=== PATIENT | male | born 1950 | race Caucasian/White ===

== ENCOUNTER 2018-11-01 12:13 | Inpatient (IN) ==
[2018-11-01] MEDS ORDERED: SODIUM CHLORIDE 0.9% 1000ML 2,000 ML IV ONE (12:39)
[2018-11-01] MEDS ORDERED: PIPERACILL/TAZOBAC CONSULT ACTIVE PRN ×2 (12:39→16:49)
[2018-11-01] MEDS ORDERED: PIPERACILLIN/TAZOBACTAM 4.5 GM/120 ML BAG IV ONE (12:39)
[2018-11-01] MEDS ORDERED: ACETAMINOPHEN 1,000 MG/100 ML VIAL IV ONE (12:39)
[2018-11-01 13:11] LABS: Hematocrit (blood only) 43.1 % (42-52); Hemoglobin 14.7 g/dL (14.0-18.0); Mean Corpuscular Hgb Conc 34.1 g/dL (32-36); Mean Corpuscular Volume 93.3 fL (80-100); Mean Platelet Volume 10.3 fL (7.4-10.4); Platelet Count 149 K/uL (130-400); RDW Coefficient of Variation 12.9 % (11.5-14.5); RDW Standard Deviation 43.8 fL (36.4-46.3); Red Blood Count 4.62 M/uL (4.7-6.1); White Blood Count 12.31 K/uL (4.8-10.8)
[2018-11-01 13:12] LABS: Appearance Urine Turbid (Clear); Bacteria Urine Automated 4+ (Negative); Bilirubin Urine Negative (Negative); Cast Urine Automated 0 /lpf (0-5); Color Urine Dark Yellow; Glucose Urine UA Negative (Negative); Ketones Urine Trace (Negative); Leukocyte Esterase Urine 3+ (Negative); Nitrite Urine Negative (Negative); Protein Urine 2+ (Negative); Urobilinogen Urine Negative (Negative); WBC Urine Automated >30 /hpf (0-5); pH Urine 5.5 (4.5-7.5)
[2018-11-01 13:23] LABS: INR 1.1 (0.9-1.1); Partial Thromboplastin Time 26.3 Seconds (21.0-31.0); Prothrombin Time 10.6 Seconds (9.0-12.0)
[2018-11-01 13:25] LABS: Albumin Level 3.9 gm/dl (3.4-5.0); Aspartate Aminotransferase 40 U/L (15-37); Bilirubin Direct 0.4 mg/dl (0-0.2); Blood Urea Nitrogen 16 mg/dl (7-18); Calcium 8.7 mg/dl (8.5-10.1); Carbon Dioxide 21 mmol/L (21-32); Chloride 104 mmol/L (98-107); Est GFR (Non-African American) 66.4; Glucose 125 mg/dl (70-99); Magnesium 1.8 mg/dl (1.8-2.4); Potassium 3.6 mmol/L (3.5-5.1); Sodium 136 mmol/L (136-145)
[2018-11-01 13:30] LABS: Alanine Aminotransferase 40 U/L (12-78); Albumin Globulin Ratio 0.9 (0.9-2); Alkaline Phosphatase 85 U/L (45-117); Bilirubin,Total 1.2 mg/dl (0.2-1); Globulin 4.2 gm/dl (2.5-4.0); Phosphorus 2.6 mg/dl (2.5-4.9); Total Protein 8.1 gm/dl (6.4-8.2); Troponin I < 0.015 ng/ml (0-0.045)
[2018-11-01 13:38] LABS: Basophils # (auto) 0.01 K/uL (0-0.2); Basophils % (auto) 0.1 %; Immature Granulocytes # (auto) 0.04 K/uL (0.00-0.02); Immature Granulocytes % (auto) 0.3 %; Lymphocytes # (auto) 0.85 K/uL (1.2-3.4); Lymphocytes % (auto) 6.9 %; Monocytes # (auto) 0.26 K/uL (0.11-0.59); Monocytes % (auto) 2.1 %; Neutrophils # (auto) 11.15 K/uL (1.4-6.5); Neutrophils % (auto) 90.6 %
[2018-11-01 13:53] LABS: Base Excess VBG -0.8 mEq/L; Oxygen Saturation VBG 81.2 %; pH VBG 7.45 (7.36-7.41)
[2018-11-01] MEDS ORDERED: IOVERSOL 100ml IV PRN (14:00)
--- NOTE | 2018-11-01 14:08 | Emergency Department Note ---
Entered by Crow Shane acting as a scribe for Brendon Eden MD History of Present Illness General Chief complaint: Urinary Symptoms Stated complaint: SENT BY DOCTOR KT Time Seen by Provider: 11/01/18 12:28 Source: patient Limitations: no limitations History of Present Illness Onset (ago): day(s) 1 Location: abdomen Pain Consistency: + constant Maximum Pain Intensity: 8 Quality: + constant Associated symptoms: + denies other symptoms (congestion), + fever/chills and + other (shakes); no cough The patient is a 68 year old male who presents to the Emergency Room with complaints of urinary symptoms starting yesterday at 0200. The patient states he has not been able to urinate and visited a doctor today. He states he was told it may be a blockage that might be the problem. He notes he has been experiencing chills, shakes, and fever.The patient notes he has been trying to urinate. He states he thinks there is a blockage at the base of his genitals. The patient states he felt fine before yesterday. The patient denies cough and congestion. Home Medications Home Medications Medication Instructions Recorded Confirmed Type aspirin 81 mg PO QDD 11/01/18 11/01/18 History calcium carbonate-vitamin D3 1 tab PO QDD 11/01/18 11/01/18 History [Caltrate 600 + D] garlic 0 mg PO QDD 11/01/18 11/01/18 History multivit with [id number] [One 1 tab PO QDD 11/01/18 11/01/18 History Daily For Men] simvastatin 40 mg PO HS 11/01/18 11/01/18 History Allergies Allergy/AdvReac Type Severity Reaction Status Date / Time iodine Allergy Mild UNKNOWN Unverified 11/01/18 14:10 Past Med/Surg History Medical History Smoking (Chronic) Diverticulosis (Chronic) Abdominal aortic aneurysm (Chronic) [place] [facility] [place] (Ch[place]) Surgical History History of repair of aneurysm of abdominal aorta using endovascular stent graft (Chronic) 09/04/17 Dr. [place] [facility] [place] (Chronic) Family History Mother Coronary artery disease Father Coronary artery disease Brother Cancer Brother Kidney malignancy Sister Lung cancer Social History marital status: Current Living Situation: Spouse Other Information That Helps Us Care for You: No Feels Safe at Home: Yes Safety Concerns: Feels Safe At This Time Smoking Status: Current every day smoker Tobacco Type: cigarettes Cigarettes per Day: 25 Do You Dip or Chew Tobacco: No Second Hand Exposure: No Tobacco Cessation Education Requested by Patient: No Hx Alcohol Use: No Beliefs That Will Affect Care: None Preferred Language: Italian [employer] Required: No Review of Systems See HPI for pertinent positives & negatives. and A total of 10 systems reviewed and were otherwise negative Physical Exam Vital Signs Vital Signs - 24 hr 11/01/18 12:20 11/01/18 12:32 11/01/18 14:58 Temperature 36.8 C 38.6 C H Temperature Source Oral Oral Sepsis Recent Fever Within 48 Hours Yes Sepsis New/Unexplained Change in Mental Status No Sepsis Action Taken by Nursing Physician Notified Pulse Rate 122 H Pulse Rate [Right Finger] 88 Pulse Rhythm [Right Finger] Regular Pulse Strength [Right Finger] Normal Respiratory Rate 22 16 Respiratory Effort / Characteristics Non-Labored Respiratory Depth Normal Normal Respiratory Pattern Regular Blood Pressure 160/82 H Blood Pressure [Right Arm] 127/66 Blood Pressure Mean 108 Blood Pressure Mean [Right Arm] 86 Blood Pressure Position [Right Arm] Lying Pulse Oximetry 93 86 L Pulse Oximetry [Left Index Finger] Oxygen Delivery Method Room Air Room Air Oxygen Delivery Method [Left Index Finger] Oxygen Flow Rate Oxygen Flow Rate [Left Index Finger] 11/01/18 15:02 11/01/18 16:49 11/01/18 17:11 Temperature 36.8 C 36.8 C Temperature Source Oral Oral Sepsis Recent Fever Within 48 Hours Sepsis New/Unexplained Change in Mental Status Sepsis Action Taken by Nursing Pulse Rate Pulse Rate [Right Finger] 84 Pulse Rhythm [Right Finger] Regular Regular Pulse Strength [Right Finger] Normal Normal Respiratory Rate 16 16 Respiratory Effort / Characteristics Non-Labored Non-Labored Spontaneous Respiratory Depth Normal Normal Respiratory Pattern Regular Blood Pressure Blood Pressure [Right Arm] 118/73 Blood Pressure Mean Blood Pressure Mean [Right Arm] 88 Blood Pressure Position [Right Arm] Sitting Sitting Pulse Oximetry 87 L 95 Pulse Oximetry [Left Index Finger] 95 Oxygen Delivery Method Nasal Cannula Nasal Cannula Nasal Cannula Oxygen Delivery Method [Left Index Finger] Nasal Cannula Oxygen Flow Rate 3 3 Oxygen Flow Rate [Left Index Finger] 4 GENERAL: Awake, alert, ill-appearing, in no distress HENT:Normocephalic, atraumatic. Oropharynx with dry mucous membranes and otherwise unremarkable. EYES: Normal conjunctiva. Sclera non-icteric. NECK: Supple. No nuchal rigidity. FROM. No JVD. RESPIRATORY: Clear to auscultation. CARDIAC: Tachycardic rate, normal rhythm. Extremities warm and well perfused. Pulses equal. ABDOMEN: Soft, non-distended.Mild suprapubic tenderness. No rebound or guarding. No masses. RECTAL: Deferred. MUSCULOSKELETAL: Chest examination reveals no tenderness. The back is symmetrical on inspection without obvious abnormality. There is no CVA tenderness to palpation. No joint edema. LOWER EXTREMITIES: Calves are equal size bilaterally and non-tender. No edema. No discoloration. NEURO: Normal sensorium. No sensory or motor deficits noted. SKIN: No rash or jaundice noted. Course 1228: Past medical records reviewed. The patient was evaluated in room B2, and a complete history and physical examination were performed. 1455: Case was d/w Dr. Veliz, [facility] hospitalist, who will evaluate the patient for admission. Administered Medications Aspirin (Ecotrin Ectab) 81 mg PO QDD [facility] Stop: 12/01/18 16:48 Last Admin: 11/01/18 17:40 Dose: 81 mg Piperacillin Sod/Tazobactam (Sod 4.5 gm/ Dextrose) 120 mls @ 30 mls/hr IV Q8H [facility]; Protocol Stop: 11/11/18 17:59 Last Admin: 11/01/18 17:40 Dose: 30 mls/hr Ioversol (Optiray 320 100ml) 94 ml IV ONCE PRN PRN Reason: Interaction Checking Stop: 11/05/18 13:59 Last Admin: 11/01/18 14:00 Dose: 94 ml Nicotine (Nicoderm Cq) 14 mg TD QAM DIPTI Stop: 12/01/18 16:48 Last Admin: 11/01/18 17:39 Dose: 14 mg Discontinued Medications Albuterol (Duoneb) 3 ml NEB NOW STA Stop: 11/01/18 15:14 Last Admin: 11/01/18 15:28 Dose: 3 ml Piperacillin Sod/Tazobactam Sod (Zosyn) 4.5 gm in 120 mls @ 240 mls/hr IV NOW ONE Stop: 11/01/18 13:08 Last Infusion: 11/01/18 13:56 Dose: 0 mls/hr Admin: 11/01/18 13:15 Dose: 240 mls/hr Acetaminophen (Ofirmev) 1,000 mg in 100 mls @ 400 mls/hr IV NOW ONE Stop: 11/01/18 12:53 Last Infusion: 11/01/18 13:27 Dose: 0 mls/hr Admin: 11/01/18 13:14 Dose: 400 mls/hr Sodium Chloride (Nss 1000ml) 2,000 mls @ 999 mls/hr IV .Q2H1M ONE Stop: 11/01/18 14:39 Last Infusion: 11/01/18 15:15 Dose: 0 mls/hr Admin: 11/01/18 13:15 Dose: 999 mls/hr Sodium Chloride (Nss 1000ml) 1,000 mls @ 999 mls/hr IV .Q1H1M ONE Stop: 11/01/18 16:02 Last Infusion: 11/01/18 16:15 Dose: 0 mls/hr Admin: 11/01/18 15:14 Dose: 999 mls/hr Medical Decision Making Differential Diagnosis Differential diagnosis: Etiologies such as viral syndrome, otitis, pharyngitis, pneumonia, influenza, meningitis, urinary tract infection, septic arthritis, soft tissue infectious process, intra-abdominal process, sepsis, bacteremia, as well as others were entertained. Medical Records Attestation: I reviewed the patient's medical records. Home Medications Current Medication List: was personally reviewed by me Laboratory Data Attestation: I reviewed the patient's lab results. Result diagrams: 11/01/18 12:50 11/01/18 12:50 Lab Results 11/01/18 11/01/18 11/01/18 Range/Units 12:49 12:50 12:50 WBC 12.31 H (4.8-10.8) K/uL RBC 4.62 L (4.7-6.1) M/uL Hgb 14.7 (14.0-18.0) g/dL POC Hgb (14.0-18.0) g/dl Hct 43.1 (42-52) % POC Hct (42-52) % MCV 93.3 (80-100) fL MCH 31.8 (25-34) pg MCHC 34.1 (32-36) g/dL RDW Std Deviation 43.8 (36.4-46.3) fL RDW Coeff of Karine 12.9 (11.5-14.5) % Plt Count 149 (130-400) K/uL MPV 10.3 (7.4-10.4) fL Immature Gran % (Auto) 0.3 % Neut % (Auto) 90.6 % Lymph % (Auto) 6.9 % Gaston % (Auto) 2.1 % Eos % (Auto) 0.0 % Baso % (Auto) 0.1 % Immature Gran # (Auto) 0.04 H (0.00-0.02) K/uL Neut # (Auto) 11.15 H (1.4-6.5) K/uL Lymph # (Auto) 0.85 L (1.2-3.4) K/uL Gaston # (Auto) 0.26 (0.11-0.59) K/uL Eos # (Auto) 0.00 (0-0.5) K/uL Baso # (Auto) 0.01 (0-0.2) K/uL PT 10.6 (9.0-12.0) Seconds INR 1.1 (0.9-1.1) APTT 26.3 (21.0-31.0) Seconds PTT Ratio 1.0 VBG pH (7.36-7.41) VBG pCO2 (38-50) mmHg VBG pO2 mmHg VBG HCO3 mmol/L VBG O2 Saturation % VBG Base Excess mEq/L Barometric Pressure mm/Hg POC Sodium (135-144) mEq/L Sodium (136-145) mmol/L POC Potassium (3.3-5.0) mEq/L Potassium (3.5-5.1) mmol/L POC Chloride (101-112) mEq/L Chloride (98-107) mmol/L Carbon Dioxide (21-32) mmol/L POC Total CO2 (24-31) mEq/l Anion Gap (3-11) POC Anion Gap (16-25) mmol/L POC BUN (7-18) mg/dl BUN (7-18) mg/dl Creatinine (0.6-1.4) mg/dl POC Creatinine (0.6-1.3) mg/dl Est Cr Clr Drug Dosing ml/min Est GFR ( Amer) Est GFR (Non-Af Amer) BUN/Creatinine Ratio (10-20) Glucose (70-99) mg/dl POC Glucose (other) (70-99) mg/dl Lactate (0.4-2.0) mmol/L Calcium (8.5-10.1) mg/dl POC Ioniz Calcium Israel (1.12-1.32) mmol/l Phosphorus (2.5-4.9) mg/dl Magnesium (1.8-2.4) mg/dl Total Bilirubin (0.2-1) mg/dl Direct Bilirubin (0-0.2) mg/dl AST (15-37) U/L ALT (12-78) U/L Alkaline Phosphatase (45-117) U/L Troponin I (0-0.045) ng/ml NT-Pro-B Natriuret Pep (0-900) pg/ml Total Protein (6.4-8.2) gm/dl Albumin (3.4-5.0) gm/dl Globulin (2.5-4.0) gm/dl Albumin/Globulin Ratio (0.9-2) Procalcitonin (0-0.5) ng/ml Urine Color Dark Yellow Urine Appearance Turbid H (Clear) Urine pH 5.5 (4.5-7.5) Ur Specific Walker 1.020 (1.000-1.030) Urine Protein 2+ H (Negative) Urine Glucose (UA) Negative (Negative) Urine Ketones Trace H (Negative) Urine Blood 3+ H (Negative) Urine Nitrite Negative (Negative) Urine Bilirubin Negative (Negative) Urine Urobilinogen Negative (Negative) Ur Leukocyte Esterase 3+ H (Negative) Urine WBC (Auto) >30 H (0-5) /hpf Urine RBC (Auto) >30 H (0-4) /hpf U Hyaline Cast (Auto) 0 (0-5) /lpf U Epithel Cells (Auto) 10-20 H (0-5) /lpf Urine Bacteria (Auto) 4+ H (Negative) 11/01/18 11/01/18 11/01/18 Range/Units 12:50 12:55 13:10 WBC (4.8-10.8) K/uL RBC (4.7-6.1) M/uL Hgb (14.0-18.0) g/dL POC Hgb 14.3 (14.0-18.0) g/dl Hct (42-52) % POC Hct 42 (42-52) % MCV (80-100) fL MCH (25-34) pg MCHC (32-36) g/dL RDW Std Deviation (36.4-46.3) fL RDW Coeff of Karine (11.5-14.5) % Plt Count (130-400) K/uL MPV (7.4-10.4) fL Immature Gran % (Auto) % Neut % (Auto) % Lymph % (Auto) % Gaston % (Auto) % Eos % (Auto) % Baso % (Auto) % Immature Gran # (Auto) (0.00-0.02) K/uL Neut # (Auto) (1.4-6.5) K/uL Lymph # (Auto) (1.2-3.4) K/uL Gaston # (Auto) (0.11-0.59) K/uL Eos # (Auto) (0-0.5) K/uL Baso # (Auto) (0-0.2) K/uL PT (9.0-12.0) Seconds INR (0.9-1.1) APTT (21.0-31.0) Seconds PTT Ratio VBG pH (7.36-7.41) VBG pCO2 (38-50) mmHg VBG pO2 mmHg VBG HCO3 mmol/L VBG O2 Saturation % VBG Base Excess mEq/L Barometric Pressure mm/Hg POC Sodium 139 (135-144) mEq/L Sodium 136 (136-145) mmol/L POC Potassium 3.6 (3.3-5.0) mEq/L Potassium 3.6 (3.5-5.1) mmol/L POC Chloride 104 (101-112) mEq/L Chloride 104 (98-107) mmol/L Carbon Dioxide 21 (21-32) mmol/L POC Total CO2 21 L (24-31) mEq/l Anion Gap 10.0 (3-11) POC Anion Gap 19.0 (16-25) mmol/L POC BUN 16 (7-18) mg/dl BUN 16 (7-18) mg/dl Creatinine 1.13 (0.6-1.4) mg/dl POC Creatinine 0.9 (0.6-1.3) mg/dl Est Cr Clr Drug Dosing 80.0 ml/min Est GFR ( Amer) 77.0 Est GFR (Non-Af Amer) 66.4 BUN/Creatinine Ratio 14.0 (10-20) Glucose 125 H (70-99) mg/dl POC Glucose (other) 130 H (70-99) mg/dl Lactate 2.0 (0.4-2.0) mmol/L Calcium 8.7 (8.5-10.1) mg/dl POC Ioniz Calcium Israel 1.12 (1.12-1.32) mmol/l Phosphorus 2.6 (2.5-4.9) mg/dl Magnesium 1.8 (1.8-2.4) mg/dl Total Bilirubin 1.2 H (0.2-1) mg/dl Direct Bilirubin 0.4 H (0-0.2) mg/dl AST 40 H (15-37) U/L ALT 40 (12-78) U/L Alkaline Phosphatase 85 (45-117) U/L Troponin I < 0.015 (0-0.045) ng/ml NT-Pro-B Natriuret Pep (0-900) pg/ml Total Protein 8.1 (6.4-8.2) gm/dl Albumin 3.9 (3.4-5.0) gm/dl Globulin 4.2 H (2.5-4.0) gm/dl Albumin/Globulin Ratio 0.9 (0.9-2) Procalcitonin (0-0.5) ng/ml Urine Color Urine Appearance (Clear) Urine pH (4.5-7.5) Ur Specific Walker (1.000-1.030) Urine Protein (Negative) Urine Glucose (UA) (Negative) Urine Ketones (Negative) Urine Blood (Negative) Urine Nitrite (Negative) Urine Bilirubin (Negative) Urine Urobilinogen (Negative) Ur Leukocyte Esterase (Negative) Urine WBC (Auto) (0-5) /hpf Urine RBC (Auto) (0-4) /hpf U Hyaline Cast (Auto) (0-5) /lpf U Epithel Cells (Auto) (0-5) /lpf Urine Bacteria (Auto) (Negative) 11/01/18 11/01/18 11/01/18 Range/Units 13:36 16:59 16:59 WBC (4.8-10.8) K/uL RBC (4.7-6.1) M/uL Hgb (14.0-18.0) g/dL POC Hgb (14.0-18.0) g/dl Hct (42-52) % POC Hct (42-52) % MCV (80-100) fL MCH (25-34) pg MCHC (32-36) g/dL RDW Std Deviation (36.4-46.3) fL RDW Coeff of Karine (11.5-14.5) % Plt Count (130-400) K/uL MPV (7.4-10.4) fL Immature Gran % (Auto) % Neut % (Auto) % Lymph % (Auto) % Gaston % (Auto) % Eos % (Auto) % Baso % (Auto) % Immature Gran # (Auto) (0.00-0.02) K/uL Neut # (Auto) (1.4-6.5) K/uL Lymph # (Auto) (1.2-3.4) K/uL Gaston # (Auto) (0.11-0.59) K/uL Eos # (Auto) (0-0.5) K/uL Baso # (Auto) (0-0.2) K/uL PT (9.0-12.0) Seconds INR (0.9-1.1) APTT (21.0-31.0) Seconds PTT Ratio VBG pH 7.45 H (7.36-7.41) VBG pCO2 33 L (38-50) mmHg VBG pO2 44 mmHg VBG HCO3 23 mmol/L VBG O2 Saturation 81.2 % VBG Base Excess -0.8 mEq/L Barometric Pressure 741.9 mm/Hg POC Sodium (135-144) mEq/L Sodium (136-145) mmol/L POC Potassium (3.3-5.0) mEq/L Potassium (3.5-5.1) mmol/L POC Chloride (101-112) mEq/L Chloride (98-107) mmol/L Carbon Dioxide (21-32) mmol/L POC Total CO2 (24-31) mEq/l Anion Gap (3-11) POC Anion Gap (16-25) mmol/L POC BUN (7-18) mg/dl BUN (7-18) mg/dl Creatinine (0.6-1.4) mg/dl POC Creatinine (0.6-1.3) mg/dl Est Cr Clr Drug Dosing ml/min Est GFR ( Amer) Est GFR (Non-Af Amer) BUN/Creatinine Ratio (10-20) Glucose (70-99) mg/dl POC Glucose (other) (70-99) mg/dl Lactate 1.7 (0.4-2.0) mmol/L Calcium (8.5-10.1) mg/dl POC Ioniz Calcium Israel (1.12-1.32) mmol/l Phosphorus (2.5-4.9) mg/dl Magnesium (1.8-2.4) mg/dl Total Bilirubin (0.2-1) mg/dl Direct Bilirubin (0-0.2) mg/dl AST (15-37) U/L ALT (12-78) U/L Alkaline Phosphatase (45-117) U/L Troponin I (0-0.045) ng/ml NT-Pro-B Natriuret Pep (0-900) pg/ml Total Protein (6.4-8.2) gm/dl Albumin (3.4-5.0) gm/dl Globulin (2.5-4.0) gm/dl Albumin/Globulin Ratio (0.9-2) Procalcitonin 2.66 H (0-0.5) ng/ml Urine Color Urine Appearance (Clear) Urine pH (4.5-7.5) Ur Specific Walker (1.000-1.030) Urine Protein (Negative) Urine Glucose (UA) (Negative) Urine Ketones (Negative) Urine Blood (Negative) Urine Nitrite (Negative) Urine Bilirubin (Negative) Urine Urobilinogen (Negative) Ur Leukocyte Esterase (Negative) Urine WBC (Auto) (0-5) /hpf Urine RBC (Auto) (0-4) /hpf U Hyaline Cast (Auto) (0-5) /lpf U Epithel Cells (Auto) (0-5) /lpf Urine Bacteria (Auto) (Negative) 11/01/18 Range/Units 17:07 WBC (4.8-10.8) K/uL RBC (4.7-6.1) M/uL Hgb (14.0-18.0) g/dL POC Hgb (14.0-18.0) g/dl Hct (42-52) % POC Hct (42-52) % MCV (80-100) fL MCH (25-34) pg MCHC (32-36) g/dL RDW Std Deviation (36.4-46.3) fL RDW Coeff of Karine (11.5-14.5) % Plt Count (130-400) K/uL MPV (7.4-10.4) fL Immature Gran % (Auto) % Neut % (Auto) % Lymph % (Auto) % Gaston % (Auto) % Eos % (Auto) % Baso % (Auto) % Immature Gran # (Auto) (0.00-0.02) K/uL Neut # (Auto) (1.4-6.5) K/uL Lymph # (Auto) (1.2-3.4) K/uL Gaston # (Auto) (0.11-0.59) K/uL Eos # (Auto) (0-0.5) K/uL Baso # (Auto) (0-0.2) K/uL PT (9.0-12.0) Seconds INR (0.9-1.1) APTT (21.0-31.0) Seconds PTT Ratio VBG pH (7.36-7.41) VBG pCO2 (38-50) mmHg VBG pO2 mmHg VBG HCO3 mmol/L VBG O2 Saturation % VBG Base Excess mEq/L Barometric Pressure mm/Hg POC Sodium (135-144) mEq/L Sodium (136-145) mmol/L POC Potassium (3.3-5.0) mEq/L Potassium (3.5-5.1) mmol/L POC Chloride (101-112) mEq/L Chloride (98-107) mmol/L Carbon Dioxide (21-32) mmol/L POC Total CO2 (24-31) mEq/l Anion Gap (3-11) POC Anion Gap (16-25) mmol/L POC BUN (7-18) mg/dl BUN (7-18) mg/dl Creatinine (0.6-1.4) mg/dl POC Creatinine (0.6-1.3) mg/dl Est Cr Clr Drug Dosing ml/min Est GFR ( Amer) Est GFR (Non-Af Amer) BUN/Creatinine Ratio (10-20) Glucose (70-99) mg/dl POC Glucose (other) (70-99) mg/dl Lactate (0.4-2.0) mmol/L Calcium (8.5-10.1) mg/dl POC Ioniz Calcium Israel (1.12-1.32) mmol/l Phosphorus (2.5-4.9) mg/dl Magnesium (1.8-2.4) mg/dl Total Bilirubin (0.2-1) mg/dl Direct Bilirubin (0-0.2) mg/dl AST (15-37) U/L ALT (12-78) U/L Alkaline Phosphatase (45-117) U/L Troponin I (0-0.045) ng/ml NT-Pro-B Natriuret Pep 268 (0-900) pg/ml Total Protein (6.4-8.2) gm/dl Albumin (3.4-5.0) gm/dl Globulin (2.5-4.0) gm/dl Albumin/Globulin Ratio (0.9-2) Procalcitonin (0-0.5) ng/ml Urine Color Urine Appearance (Clear) Urine pH (4.5-7.5) Ur Specific Walker (1.000-1.030) Urine Protein (Negative) Urine Glucose (UA) (Negative) Urine Ketones (Negative) Urine Blood (Negative) Urine Nitrite (Negative) Urine Bilirubin (Negative) Urine Urobilinogen (Negative) Ur Leukocyte Esterase (Negative) Urine WBC (Auto) (0-5) /hpf Urine RBC (Auto) (0-4) /hpf U Hyaline Cast (Auto) (0-5) /lpf U Epithel Cells (Auto) (0-5) /lpf Urine Bacteria (Auto) (Negative) Imaging Data Attestation: I personally reviewed and interpreted this imaging study as follows : Radiologist's Impression: Radiology results as stated below per my review and the radiologist's interpretation: XR chest 1V portable CLINICAL HISTORY: Sepsis COMPARISON STUDY: 02/16/2011 FINDINGS: The heart is at the upper limits of normal in size. There is mild basilar interstitial thickening. There are minimal left basilar airspace opacities, likely atelectatic although an infectious/inflammatory process could appear similar. There are no significant pleural effusions. There is an azygos fissure.[ IMPRESSION: 1. Mild basilar interstitial thickening 2. Minimal left basilar airspace opacities likely atelectatic although an infectious/inflammatory process could appear similar --- CT abd pelvis IV con only CLINICAL HISTORY: Abdominal pain, sepsis. COMPARISON STUDY: 02/12/2011 TECHNIQUE: The patient was scanned in a dynamic helical fashion during intravenous administration of 94 cc of Optiray 320. A dose lowering technique was utilized adhering to the principles of ALARA. CT DOSE: 1086.47 mGy.cm FINDINGS: Lower chest: There are coronary artery calcifications. There are dependent atelectatic changes. Liver: There is mild hepatic steatosis. No focal hepatic masses are visualized. The portal and hepatic veins appear patent. Gallbladder: Cholelithiasis. No gallbladder wall thickening. Spleen: Normal in size and attenuation. Pancreas: Unremarkable. Adrenal glands: Unremarkable. Kidneys: There is a 1 cm right renal hypodensity, most consistent with a cyst. Bowel: There are borderline dilated left upper quadrant small bowel loops without evidence of a definitive transition zone. An ileus is favored over a partial small bowel obstruction. Clinical follow-up is advocated. There is no free air. There is no pneumatosis. There is no portal venous gas. There is no acute diverticulitis. By history the appendix is surgically absent. Peritoneum: There is no intraperitoneal free air or abdominal ascites. Vasculature: There is evidence for aortic aneurysm status post aortobiiliac stent grafting. The [place] aneurysm sac measures 4.6 cm. Adenopathy: None. Pelvic viscera: There is bladder wall thickening and infiltration the perivesical fat. The findings are suspicious for cystitis and correlation with urinalysis is recommended. The prostate is mildly enlarged. Skeletal structures: No destructive osseous lesions are seen. IMPRESSION: 1. Bladder wall thickening and infiltration of the perivesical fat. A cystitis is suspected. Correlation with urinalysis is recommended. 2. Cholelithiasis 3. Abdominal aortic aneurysm status post aortobiiliac stent graft repair 4. Mildly dilated left upper quadrant small bowel loops. An ileus is favored over a partial small bowel obstruction. Clinical follow-up is recommended. 5. No evidence of free air. Electronically signed by: Winston Lopez M.D. 11/01/2018 2:12 PM Dictated: 11/01/18 1404 Transcribed: 11/01/18 140 ECG Data Attestation: I personally reviewed and interpreted this ECG as follows: Indication: other (sepsis) Rate (beats per minute): 104 Rhythm: sinus tachycardia Findings: + other (anterior infarct) and + left axis deviation; no acute ischemic change Blood Pressure Blood Pressure Findings: Normal blood pressure MDM Narrative The patient is a pleasant 68-year-old gentleman with a past medical history of HLD, AAA repair who presents emergency department with worsening lower abdominal discomfort with urinary urgency since yesterday per hpi. On arrival the patient is ill-appearing, febrile to 38.6, tachycardic in the 120s, with blood pressure stable. Patient appears clinically dry. He has mild suprapubic tenderness. Bedside ultrasound demonstrates approximately 300 cc of urine, therefore no significant retention at this time. EKG without evidence of acute ischemia. Chest x-ray with atelectasis vs infiltrate. WBC 12.3. Chemistry without acidosis. Renal function within normal limits. Troponin negative. UA consistent with infection with LE 3+, WBC> 30, 4+ bacteria. Patient was given empiric Zosyn on arrival given his ill appearance. CT the abdomen pelvis demonstrates bladder wall thickening c/w cystitis. Lower lung findings further clarified as likely atelectasis. Patient reevaluated feeling improved after IV fluid hydration, APAP. Heart rate improved to the 90s. 3rd liter ordered to complete 30cc/kg. Case was d/w Dr. Veliz, [facility] hospitalist, who will evaluate the patient for admission. Patient developing O2 requirement however no rales on exam. Scant intermittent wheeze and so Duoneb ordered. Impression & Plan Sepsis, Acute UTI (urinary tract infection) Critical Care Time I have personally spent greater than 60 minutes of critical care time in the direct management of this patient. This includes bedside care, interpretation of diagnostic studies, and testing, discussion with consultants, patient, and family members, and other required patient management activities. This 60 minutes is in excess of all separately billable procedures. Critical Care Time: Yes Total Critical Care Time: 60 Discharge Plan Visit Data *Final* Discharge Date/Time: 11/01/18 15:52 Chief Complaint: Urinary Symptoms Stated Complaint: SENT BY DOCTOR ED Provider: Brendon Eden Discharge Problem: Sepsis, Acute UTI (urinary tract infection) Patient Disposition: Admitted As Inpatient Discharge Instructions Interventions: ED Discharge Assessment Last Done: 11/01/18 15:52 The scribe's documentation has been prepared under my direction and personally reviewed by me in its entirety. I confirm that the note above accurately reflects all work, treatment, procedures, and medical decision making performed by me.
--- NOTE | 2018-11-01 14:14 | CT Scan Report ---
CT abd pelvis IV con only CLINICAL HISTORY: Abdominal pain, sepsis. COMPARISON STUDY: 02/12/2011 TECHNIQUE: The patient was scanned in a dynamic helical fashion during intravenous administration of 94 cc of Optiray 320. A dose lowering technique was utilized adhering to the principles of ALARA. CT DOSE: 1086.47 mGy.cm FINDINGS: Lower chest: There are coronary artery calcifications. There are dependent atelectatic changes. Liver: There is mild hepatic steatosis. No focal hepatic masses are visualized. The portal and hepati c veins appear patent. Gallbladder: Cholelithiasis. No gallbladder wall thickening. Spleen: Normal in size and attenuation. Pancreas: Unremarkable. Adrenal glands: Unremarkable. Kidneys: There is a 1 cm right renal hypodensity, most consistent with a cyst. Bowel: There are borderline dilated left upper quadrant small bowel loops without evidence of a defin itive transition zone. An ileus is favored over a partial small bowel obstruction. Clinical follow-up is advocated. There is no free air. There is no pneumatosis. There is no portal venous gas. There is no acute diverticulitis. By history the appendix is surgically absent. Peritoneum: There is no intraperitoneal free air or abdominal ascites. Vasculature: There is evidence for aortic aneurysm status post aortobiiliac stent grafting. The nativ e aneurysm sac measures 4.6 cm. Adenopathy: None. Pelvic viscera: There is bladder wall thickening and infiltration the perivesical fat. The findings a re suspicious for cystitis and correlation with urinalysis is recommended. The prostate is mildly enl arged. Skeletal structures: No destructive osseous lesions are seen. IMPRESSION: 1. Bladder wall thickening and infiltration of the perivesical fat. A cystitis is suspected. Correlat ion with urinalysis is recommended. 2. Cholelithiasis 3. Abdominal aortic aneurysm status post aortobiiliac stent graft repair 4. Mildly dilated left upper quadrant small bowel loops. An ileus is favored over a partial small bow el obstruction. Clinical follow-up is recommended. 5. No evidence of free air. Electronically signed by: Winston Lopez M.D. 11/01/2018 2:12 PM
--- NOTE | 2018-11-01 14:31 | XRay Report ---
XR chest 1V portable CLINICAL HISTORY: Sepsis COMPARISON STUDY: 02/16/2011 FINDINGS: The heart is at the upper limits of normal in size. There is mild basilar interstitial thic kening. There are minimal left basilar airspace opacities, likely atelectatic although an infectious/ inflammatory process could appear similar. There are no significant pleural effusions. There is an az ygos fissure.[ IMPRESSION: 1. Mild basilar interstitial thickening 2. Minimal left basilar airspace opacities likely atelectatic although an infectious/inflammatory pro cess could appear similar Electronically signed by: Winston Lopez M.D. 11/01/2018 2:30 PM
[2018-11-01] MEDS ORDERED: SODIUM CHLORIDE 0.9% 1000ML 1,000 ML IV ONE (15:02)
[2018-11-01 15:12] LABS: iSTAT Hemoglobin 14.3 g/dl (14.0-18.0); iSTAT Ionized Calcium 1.12 mmol/l (1.12-1.32)
[2018-11-01] MEDS ORDERED: ALBUT/IPRATROP 3MG/0.5MG NEB 3 ML VIAL NEB STA (15:13)
--- NOTE | 2018-11-01 16:26 | XRay Report ---
XR chest 1V portable CLINICAL HISTORY: hypoxia COMPARISON STUDY: 11/01/2018 FINDINGS: The cardiac and mediastinal contours remain stable. There is persistent basilar residual th ickening. There are no significant pleural effusions. More focal left basilar opacities are likely at electatic.[ IMPRESSION: Stable finding. Basilar interstitial thickening. No lobar consolidation. Electronically signed by: Winston Lopez M.D. 11/01/2018 4:25 PM
--- NOTE | 2018-11-01 16:28 | History & Physical Report ---
Date of Service November 01, 2018 Assessment & Plan (1) Sepsis: Met criteria for sepsis per current CMS definition (fever, tachycardia, leukocytosis). Hemodynamically stable. Serum lactate borderline elevated at 2.0. Patient received IV fluids in the ED. Received broad spectrum intravenous antibiotic coverage with piperacillin/ tazobactam. Most likely source of sepsis is urinary tract infection as discussed below. Continue piperacillin/tazobactam pending culture results. Fluoroquinolones should be avoided if possible due to history of AAA. Check procalcitonin and repeat lactate. Monitor hemodynamics. (2) Acute UTI (urinary tract infection): Urinalysis as noted above demonstrates leukocyte esterase, WBCs, RBCs, bacteria. CT demonstrated bladder wall thickening and infiltration of the perivesical fat consistent with cystitis; no renal calculi were seen. Symptoms and prostate exam consistent with prostatitis. Continue piperacillin/tazobactam pending culture results. Will probably need prolonged course of antibiotic therapy due to suspected prostatitis. Fluoroquinolones should be avoided if possible due to history of AAA. (3) Urinary retention: Acute urinary retention, probably secondary to prostatitis. No hydronephrosis per CT. Kiser catheter inserted in the ED. Consider voiding trial in 1-2 days. Consult Urology during hospital stay if necessary, otherwise arrange for outpatient follow-up in clinic with Dr. Kunz. (4) Hypoxia: No history of pulmonary disease. O2 sat on RA initially 93%, then fell to 86% with IV fluids. Pulmonary vascular prominence on chest x-ray and possible basilar atelectasis. May have underlying COPD from smoking. Supplemental O2 as needed. Levalbuterol nebs PRN. Incentive spirometry. Consider PFT's once current illness has resolved. ? CHF. EKG as described above- possible age-indeterminate inferior an anterior infarcts. Check BNP. Check echo if not recently done. (5) EKG abnormalities: EKG suggests possible age-indeterminate inferior and anterior infarcts. No clinical history of ishchemic heart disease, but multiple risk factors. Check echo if not recently done. (6) Smoking: Smokes about 1 pack/day. Nicotine patch. Smoking cessation counseling. (7) Dyslipidemia: Continue simvastatin. (8) Skin lesion: Multiple skin lesions. Lesion on right cheek may be BCC. Patient advised to review with PCP and consider Derm consult if warranted. (9) DVT prophylaxis: Low risk of VTE per IMPROVE Risk Assessment Model. However, risk increased because of sepsis. Anticoagulation will not be utilized initially due to hematuria. SCD's. Ambulate. (10) Discharge planning issues: Anticipated discharge to home. Family Medicine follow-up with Dr. Ochoa. Patient will need Urology follow-up with Dr. Kunz. History of Present Illness Chief Complaint: fever, difficulty voiding Primary Care Provider: Alejandro Ochoa 68-year-old male followed by Dr. Ochoa. History of repaired AAA, dyslipidemia, and other problems as noted below. [place] well until the morning before admission when he experienced difficulty voiding and urinary frequency. No dysuria. Possible gross hematuria. No flank pain. Temperature last night was as high as 101 and was associated with chills and sweats. Came to ED for evaluation due to his worsening symptoms. In the ED, he was noted to be febrile and tachycardic. Temp was as high as 38.6. Pulse rate was as high as 122. Initial oxygen saturation was 93% on room air. Repeat O2 sat after receiving IV fluids was 86%. Patient underwent evaluation for sepsis. Blood and urine cultures obtained. Received IV fluids and a dose of intravenous piperacillin/tazobactam. Kiser catheter placed for urinary retention. Seen by Urology (Dr. Kunz ) in the past for hydrocele. Patient denies any history of prostate, bladder, or kidney problems. Allergies Allergy/AdvReac Type Severity Reaction Status Date / Time iodine Allergy Mild UNKNOWN Unverified 11/01/18 14:10 Home Medications Home Medications Medication Instructions Recorded Confirmed Type aspirin 81 mg PO QDD 11/01/18 11/01/18 History calcium carbonate-vitamin D3 1 tab PO QDD 11/01/18 11/01/18 History [Caltrate 600 + D] garlic 0 mg PO QDD 11/01/18 11/01/18 History multivit with [id number] [One 1 tab PO QDD 11/01/18 11/01/18 History Daily For Men] simvastatin 40 mg PO HS 11/01/18 11/01/18 History Past Med/Surg History Medical History Smoking (Chronic) Diverticulosis (Chronic) Abdominal aortic aneurysm (Chronic) s/p endovascular repair 2016 [facility] [place] Dyslipidemia (Chronic) Surgical History History of repair of aneurysm of abdominal aorta using endovascular stent graft (Chronic) 09/04/17 Dr. Guillen [facility] [place] S/P appendectomy (Chronic) Family History Mother Coronary artery disease Father Coronary artery disease Brother Cancer Brother Kidney malignancy Sister Lung cancer Social History marital status: Current Living Situation: Spouse Other Information That Helps Us Care for You: No Feels Safe at Home: Yes Safety Concerns: Feels Safe At This Time Smoking Status: Current every day smoker Tobacco Type: cigarettes Cigarettes per Day: 25 Do You Dip or Chew Tobacco: No Second Hand Exposure: No Tobacco Cessation Education Requested by Patient: No Hx Alcohol Use: No Beliefs That Will Affect Care: None Preferred Language: Slovenian [place] Hand Required: No Review of Systems Constitutional: + fever, + chills and + sweats; no weight loss Eyes: no diplopia and no worsening vision Ear, Nose, Mouth, Throat: + hearing loss Respiratory: + cough (occasional) and + dyspnea (occasional) Cardiovascular: no chest pain, no palpitations and no edema Gastrointestinal: no nausea, no vomiting, no constipation, no diarrhea/loose stools, no blood in stools and no melena Genitourinary (Male): + as per Subjective / HPI Musculoskeletal: no joint pain and no myalgia Integumentary: + new lesions (lump on left hand); no rash Neurologic: no headache(s) Endocrine: no polydipsia and no polyuria Hematologic / Lymphatic: no easy bleeding, no easy bruising and no lymphadenopathy Physical Exam 2 Vital Signs (Past 24 Hours): Last Vital Signs Temp 38.6 C H 11/01/18 12:32 Pulse 88 11/01/18 14:58 Resp 16 11/01/18 14:58 BP 127/66 11/01/18 14:58 Pulse Ox 87 L 11/01/18 15:02 Constitutional: WD/WN, vitals as above no acute distress Eyes: PERRL, conjunctivae normal, anicteric sclerae ENMT: external ear and nose normal, oropharynx normal Ears: + hearing impairment Mouth: + dentures Neck: trachea midline, no thyromegaly Respiratory: no respiratory distress Auscultation: + wheezes (diffuse) Cardiovascular: Rate/Rhythm: regular rate Heart Sounds: no gallop, no murmur and no cardiac rub Vessels: + JVD Extremities: normal capillary refill and + edema (trace); no calf tenderness Gastrointestinal (Abdomen): normal bowel sounds, soft, nontender, no hepatosplenomegaly Musculoskeletal: Head/Neck/Chest: neck supple Extremities: strength 5/5 throughout; no cyanosis and no clubbing Skin: no rashes, warm and dry possible basal cell carcinoma right cheek nontender mass left hand overlying first metacarpal Neurologic: PERRL, EOMI no facial palsy no dysarthria or aphasia patellar DTR's 2/2 bilat Psychiatric: Orientation: alert and oriented x 3 Affect: euthymic affect Genitourinary: + prostate abnormality (moderately enlarged, boggy, tender) Kiser cath; urine dark bishop with streaks of blood Lymphatic: no cervical lymphadenopathy Results & Data Laboratory Results Laboratory Results - last 24 hr 11/01/18 11/01/18 11/01/18 12:49 12:50 12:50 WBC 12.31 H RBC 4.62 L Hgb 14.7 POC Hgb Hct 43.1 POC Hct MCV 93.3 MCH 31.8 MCHC 34.1 RDW Std Deviation 43.8 RDW Coeff of Karine 12.9 Plt Count 149 MPV 10.3 Immature Gran % (Auto) 0.3 Neut % (Auto) 90.6 Lymph % (Auto) 6.9 [place] % (Auto) 2.1 Eos % (Auto) 0.0 Baso % (Auto) 0.1 Immature Gran # (Auto) 0.04 H Neut # (Auto) 11.15 H Lymph # (Auto) 0.85 L [place] # (Auto) 0.26 Eos # (Auto) 0.00 Baso # (Auto) 0.01 PT 10.6 INR 1.1 APTT 26.3 PTT Ratio 1.0 VBG pH VBG pCO2 VBG pO2 VBG HCO3 VBG O2 Saturation VBG Base Excess Barometric Pressure POC Sodium Sodium POC Potassium Potassium POC Chloride Chloride Carbon Dioxide POC Total CO2 Anion Gap POC Anion Gap POC BUN BUN Creatinine POC Creatinine Est Cr Clr Drug Dosing Est GFR ( Amer) Est GFR (Non-Af Amer) BUN/Creatinine Ratio Glucose POC Glucose (other) Lactate Calcium POC Ioniz Calcium [place] Phosphorus Magnesium Total Bilirubin Direct Bilirubin AST ALT Alkaline Phosphatase Troponin I Total Protein Albumin Globulin Albumin/Globulin Ratio Urine Color Dark Yellow Urine Appearance Turbid H Urine pH 5.5 Ur Specific [place] 1.020 Urine Protein 2+ H Urine Glucose (UA) Negative Urine Ketones Trace H Urine Blood 3+ H Urine Nitrite Negative Urine Bilirubin Negative Urine Urobilinogen Negative Ur Leukocyte Esterase 3+ H Urine WBC (Auto) >30 H Urine RBC (Auto) >30 H U Hyaline Cast (Auto) 0 U Epithel Cells (Auto) 10-20 H Urine Bacteria (Auto) 4+ H 11/01/18 11/01/18 11/01/18 12:50 12:55 13:10 WBC RBC Hgb POC Hgb 14.3 Hct POC Hct 42 MCV MCH MCHC RDW Std Deviation RDW Coeff of Karine Plt Count MPV Immature Gran % (Auto) Neut % (Auto) Lymph % (Auto) [place] % (Auto) Eos % (Auto) Baso % (Auto) Immature Gran # (Auto) Neut # (Auto) Lymph # (Auto) [place] # (Auto) Eos # (Auto) Baso # (Auto) PT INR APTT PTT Ratio VBG pH VBG pCO2 VBG pO2 VBG HCO3 VBG O2 Saturation VBG Base Excess Barometric Pressure POC Sodium 139 Sodium 136 POC Potassium 3.6 Potassium 3.6 POC Chloride 104 Chloride 104 Carbon Dioxide 21 POC Total CO2 21 L Anion Gap 10.0 POC Anion Gap 19.0 POC BUN 16 BUN 16 Creatinine 1.13 POC Creatinine 0.9 Est Cr Clr Drug Dosing 80.0 Est GFR ( Amer) 77.0 Est GFR (Non-Af Amer) 66.4 BUN/Creatinine Ratio 14.0 Glucose 125 H POC Glucose (other) 130 H Lactate 2.0 Calcium 8.7 POC Ioniz Calcium [place] 1.12 Phosphorus 2.6 Magnesium 1.8 Total Bilirubin 1.2 H Direct Bilirubin 0.4 H AST 40 H ALT 40 Alkaline Phosphatase 85 Troponin I < 0.015 Total Protein 8.1 Albumin 3.9 Globulin 4.2 H Albumin/Globulin Ratio 0.9 Urine Color Urine Appearance Urine pH Ur Specific [place] Urine Protein Urine Glucose (UA) Urine Ketones Urine Blood Urine Nitrite Urine Bilirubin Urine Urobilinogen Ur Leukocyte Esterase Urine WBC (Auto) Urine RBC (Auto) U Hyaline Cast (Auto) U Epithel Cells (Auto) Urine Bacteria (Auto) 11/01/18 13:36 WBC RBC Hgb POC Hgb Hct POC Hct MCV MCH MCHC RDW Std Deviation RDW Coeff of Karine Plt Count MPV Immature Gran % (Auto) Neut % (Auto) Lymph % (Auto) [place] % (Auto) Eos % (Auto) Baso % (Auto) Immature Gran # (Auto) Neut # (Auto) Lymph # (Auto) [place] # (Auto) Eos # (Auto) Baso # (Auto) PT INR APTT PTT Ratio VBG pH 7.45 H VBG pCO2 33 L VBG pO2 44 VBG HCO3 23 VBG O2 Saturation 81.2 VBG Base Excess -0.8 Barometric Pressure 741.9 POC Sodium Sodium POC Potassium Potassium POC Chloride Chloride Carbon Dioxide POC Total CO2 Anion Gap POC Anion Gap POC BUN BUN Creatinine POC Creatinine Est Cr Clr Drug Dosing Est GFR ( Amer) Est GFR (Non-Af Amer) BUN/Creatinine Ratio Glucose POC Glucose (other) Lactate Calcium POC Ioniz Calcium [place] Phosphorus Magnesium Total Bilirubin Direct Bilirubin AST ALT Alkaline Phosphatase Troponin I Total Protein Albumin Globulin Albumin/Globulin Ratio Urine Color Urine Appearance Urine pH Ur Specific [place] Urine Protein Urine Glucose (UA) Urine Ketones Urine Blood Urine Nitrite Urine Bilirubin Urine Urobilinogen Ur Leukocyte Esterase Urine WBC (Auto) Urine RBC (Auto) U Hyaline Cast (Auto) U Epithel Cells (Auto) Urine Bacteria (Auto) Diagnostic Findings Chest x-ray reviewed by the undersigned and formally interpreted by Radiology. It demonstrated mild bibasilar interstitial thickening and minimal densities at the left base thought to be most likely atelectatic in nature. Chest x-ray repeated in ED due to worsening oxygenation. It was stable in appearance, although there seemed to be some vascular prominence. ECG Additional Comments: EKG performed at 1247 reviewed and demonstrated sinus tachycardia at 104, baseline artifact, poor R wave progression, possible age-indeterminate inferior infarct, biphasic T waves in lead I, inverted T waves in aVL, slight ST depression in V6. Tracing was compared to one performed at [facility] on 01/21/16. Inferior Q waves are now new. T wave changes in lateral limb leads are now new. Code Status & VTE Plan Code Status Advance directives discussed with patient. He does not have a living will. He would like resuscitation attempted in the event of a cardiopulmonary arrest if there is a reasonable chance of a meaningful recovery. Therefore, code status is full code ("level 1). VTE Prophylaxis Plan VTE Prophylaxis will be ordered: Yes _ (1) Sepsis Sepsis type: sepsis due to unspecified organism Qualified Code(s): A41.9 - Sepsis, unspecified organism
[2018-11-01] MEDS ORDERED: LEVALBUTEROL 1.25MG/0.5ML NEB NEB PRN (16:49)
[2018-11-01] MEDS: NICOTINE 14 MG/24 HR PATCH TD SCH (17:39)
[2018-11-01] MEDS: PIPERACILLIN/TAZOBACTAM 4.5 GM in DEXTROSE 5% 100 ML IV SCH (17:40)
[2018-11-01] MEDS: ASPIRIN 81 MG ECTAB PO SCH (17:40)
[2018-11-01] MEDS: SIMVASTATIN 40 MG TAB PO SCH (20:09)
[2018-11-01] MEDS ORDERED: ENOXAPARIN INJ 40 MG/0.4 ML SYR SQ SCH (21:00)
[2018-11-02] MEDS: PIPERACILLIN/TAZOBACTAM 4.5 GM in DEXTROSE 5% 100 ML IV SCH ×3 (02:06→18:03)
[2018-11-02 05:48] LABS: Hematocrit (blood only) 40.5 % (42-52); Hemoglobin 13.5 g/dL (14.0-18.0); Mean Corpuscular Hgb Conc 33.3 g/dL (32-36); Mean Corpuscular Volume 94.2 fL (80-100); Platelet Count 129 K/uL (130-400); RDW Coefficient of Variation 13.3 % (11.5-14.5); RDW Standard Deviation 45.8 fL (36.4-46.3); White Blood Count 10.89 K/uL (4.8-10.8)
[2018-11-02 06:17] LABS: BUN Creatinine Ratio 14.5 (10-20); Calcium 8.1 mg/dl (8.5-10.1); Creatinine Clr Calc Pharmacy 92.3 ml/min; Est GFR (African American) 91.4; Est GFR (Non-African American) 78.9; Potassium 3.5 mmol/L (3.5-5.1)
[2018-11-02] MEDS: ACETAMINOPHEN 325 MG TAB PO PRN ×2 (07:06→23:49)
--- NOTE | 2018-11-02 07:14 | XRay Report ---
XR chest 1V portable CLINICAL HISTORY: Sepsis. COMPARISON STUDY: Chest radiograph May 01, 2019. FINDINGS: Incidental note is made of an azygos fissure. There is no pneumothorax or pleural effusion. Cardiomediastinal silhouette is stable. Minimal left basilar opacity persists. Right infrahilar opa city likely reflects normal vasculature. IMPRESSION: No change in mild left basilar opacity which favors atelectasis although an infectious p rocess could appear similar. Electronically signed by: Lincoln Briseno M.D. 11/02/2018 7:13 AM
[2018-11-02] MEDS: NICOTINE 14 MG/24 HR PATCH TD SCH (08:51)
--- NOTE | 2018-11-02 10:27 | Hospitalist Progress Note ---
Date of Service November 02, 2018 Assessment & Plan (1) Sepsis: Met criteria for sepsis with bacteremia present on admission (fever, tachycardia , leukocytosis). Hemodynamically stable. Serum lactate 0.7 Patient received IV fluids in the ED. Most likely source of sepsis is urinary tract infection. Continue piperacillin/tazobactam Positive bacteremia with gram-negative bacilli in blood, E. coli greater than 100,000 colony-forming units in the urine. Await final sensitivities, repeat blood cultures today Fluoroquinolones should be avoided if possible due to history of AAA. Monitor hemodynamics. (2) Acute UTI (urinary tract infection): Positive urinalysis CT demonstrated bladder wall thickening and infiltration of the perivesical fat consistent with cystitis; no renal calculi were seen. Symptoms and prostate exam consistent with prostatitis. Continue piperacillin/tazobactam pending final culture results and sensitivities. Will probably need prolonged course of antibiotic therapy due to suspected prostatitis. Fluoroquinolones should be avoided if possible due to history of AAA. (3) Urinary retention: Acute urinary retention, probably secondary to prostatitis. No hydronephrosis per CT. Kiser catheter inserted in the ED. Consider voiding trial in 1-2 days. Consult Urology during hospital stay if necessary, otherwise arrange for outpatient follow-up in clinic with Dr. Kunz. (4) Hypoxia: No history of pulmonary disease. O2 sat on RA initially 93%, then fell to 86% with IV fluids. Pulmonary vascular prominence on chest x-ray and possible basilar atelectasis. May have underlying COPD from smoking. Supplemental O2 as needed. Levalbuterol nebs PRN. Incentive spirometry. Consider PFT's once current illness has resolved. ? CHF. EKG as described above- possible age-indeterminate inferior an anterior infarcts. Check BNP. Check echo if not recently done. (5) EKG abnormalities: EKG suggests possible age-indeterminate inferior and anterior infarcts. No clinical history of ishchemic heart disease, but multiple risk factors. Check echo if not recently done. (6) Smoking: Smokes about 1 pack/day. Nicotine patch. Smoking cessation counseling. (7) Dyslipidemia: Continue simvastatin. (8) Skin lesion: Multiple skin lesions. Lesion on right cheek may be BCC. Patient advised to review with PCP and consider Derm consult outpatient (9) DVT prophylaxis: Low risk of VTE per IMPROVE Risk Assessment Model. However, risk increased because of sepsis. Anticoagulation will not be utilized initially due to hematuria. SCD's. Ambulate. (10) Discharge planning issues: Anticipated discharge to home. Family Medicine follow-up with Dr. Ochoa. Patient will need Urology follow-up with Dr. Kunz. Subjective Patient feels much better, complains of being cold and clammy, spiking frequent fevers. Appetite is okay. ROS-No Headache, No Visual Changes, positive fever, positive chills, positive weakness, positive diaphoresis, no Neck Pain or Stiffness, No Chest Pain, No Palpitations, No SOB, No VASQUEZ, No Cough, No Sputum, No Wheezing, No Abdominal Pain, No Diarrhea, No Hematemesis, No Hemoptysis, No Unexpected Weight Loss, No Flank pain, No Melena, No Hematochezia, positive Frequency, positive urgency, positive burning, positive hematuria, No Rashes, No Diaphoresis. Appetite is Normal Physical Exam Gen-AAO x 3, NAD, febrile, pleasant, diaphoretic Head-NCAT, EOMI, PERRLA, Anicteric Sclera, No Posterior Pharyngeal Erythema Neck-Supple, No JVD, No Thyromegaly, No Masses, No LAD, No Bruits Lungs-Clear to Auscultation Bilaterally, No Rales, No Rhonchi, No Wheezing, No Crepitus Chest-No S4, +S1, +S2, No S3, No Murmurs, No Rubs, No Gallops, No Ectopy Abdomen-Soft, Bowel Sounds Present, Non Tender, Non Distended, No Hepatomegaly, No Splenomegaly, No Palpable Masses, No Rebound, No Rigidity, No Guarding Musculoskeletal-Full Range of Motion Bilaterally, No CVAT Extremities-No Cyanosis, No Clubbing, No Edema Nuero-Cranial Nerves II-XII grossly intact, Motor WNL, DTRs WNL, Strength WNL, No Focal Psych-Normal Mood Physical Exam 2 Vital Signs (Past 24 Hours): Last Vital Signs Temp 37.3 C 11/02/18 07:36 Pulse 84 11/02/18 07:36 Resp 18 11/02/18 07:36 BP 119/70 11/02/18 07:36 Pulse Ox 92 11/02/18 07:36 Results & Data Laboratory Results Current Diagnoses Sepsis, unspecified organism (11/01/18) Hyperlipidemia, unspecified (11/01/18) Nicotine dependence, unspecified, uncomplicated (11/01/18) Disorder of the skin and subcutaneous tissue, unspecified (11/01/18) Urinary tract infection, site not specified (11/01/18) Hypoxemia (11/01/18) Retention of urine, unspecified (11/01/18) Abnormal electrocardiogram [ECG] [EKG] (11/01/18) Encounter for administrative examinations, unspecified (11/01/18) Allergies iodine Allergy (Mild, Unverified 11/01/18 14:10) UNKNOWN Height/Weight/Isolation Height 5 ft 11 in Weight 114.2 kg Chemistry 11/01/18 11/02/18 12:50 05:34 Sodium 136 135 L Potassium 3.6 3.5 Chloride 104 106 Carbon Dioxide 21 26 Anion Gap 10.0 3.0 BUN 16 14 Creatinine 1.13 0.98 Glucose 125 H 119 H Urinalysis 11/01/18 12:49 Urine Color Dark Yellow Urine Appearance Turbid H Urine pH 5.5 Ur Specific [place] 1.020 Urine Protein 2+ H Urine Glucose (UA) Negative Urine Ketones Trace H Urine Blood 3+ H Urine Nitrite Negative Urine Bilirubin Negative Microbiology 11/01/18 12:55 Blood Blood Culture - Preliminary Gram negative bacilli 11/01/18 12:50 Blood Blood Culture - Preliminary Gram negative bacilli 11/01/18 12:49 Urine,Straight Cath Urine Culture - Preliminary Escherichia coli _ (1) Sepsis Sepsis type: sepsis due to unspecified organism Qualified Code(s): A41.9 - Sepsis, unspecified organism
[2018-11-02] MEDS: ASPIRIN 81 MG ECTAB PO SCH (16:47)
[2018-11-02] MEDS: SIMVASTATIN 40 MG TAB PO SCH (20:19)
[2018-11-03] MEDS: PIPERACILLIN/TAZOBACTAM 4.5 GM in DEXTROSE 5% 100 ML IV SCH (02:35)
[2018-11-03 06:53] LABS: Albumin Level 2.9 gm/dl (3.4-5.0); BUN Creatinine Ratio 12.1 (10-20); Calcium 8.2 mg/dl (8.5-10.1); Creatinine Clr Calc Pharmacy 99.8 ml/min; Est GFR (African American) 101.4; Est GFR (Non-African American) 87.5; Potassium 3.1 mmol/L (3.5-5.1)
[2018-11-03 06:58] LABS: Albumin Globulin Ratio 0.8 (0.9-2); Bilirubin,Total 0.6 mg/dl (0.2-1); Globulin 3.8 gm/dl (2.5-4.0); Total Protein 6.7 gm/dl (6.4-8.2)
[2018-11-03] MEDS: cefTRIAXone SODIUM 1,000 MG in DEXTROSE 5% 50 ML IV SCH (08:36)
[2018-11-03] MEDS: NICOTINE 14 MG/24 HR PATCH TD SCH (08:36)
--- NOTE | 2018-11-03 09:27 | Hospitalist Progress Note ---
Date of Service November 03, 2018 Assessment & Plan (1) Sepsis: Met criteria for sepsis with bacteremia-present on admission (fever, tachycardia , leukocytosis). Hemodynamically stable. Serum lactate 0.7 Patient received IV fluids in the ED. Source of sepsis is urinary tract infection. Positive E. coli bacteremia and positive E. coli in the urine culture Antibiotics de-escalated to Rocephin Repeat blood cultures so far negative, if negative tomorrow will DC on Omnicef for 10 days Fluoroquinolones should be avoided if possible due to history of AAA. Monitor hemodynamics. (2) Acute UTI (urinary tract infection): Positive urinalysisE. coli grown out on urine and blood cultures, pansensitive , antibiotics the escalated to Rocephin CT demonstrated bladder wall thickening and infiltration of the perivesical fat consistent with cystitis; no renal calculi were seen. Symptoms and prostate exam consistent with prostatitis. Will probably need prolonged course of antibiotic therapy due to suspected prostatitis. Fluoroquinolones should be avoided if possible due to history of AAA. (3) Urinary retention: Acute urinary retention, probably secondary to prostatitis. No hydronephrosis per CT. Kiser catheter inserted in the ED. Voiding trial today Follow-up with urology outpatient follow-up in clinic with Dr. Kunz. (4) Hypoxia: No history of pulmonary disease. O2 sat on RA initially 93%, then fell to 86% with IV fluids. Pulmonary vascular prominence on chest x-ray and possible basilar atelectasis. May have underlying COPD from smoking. Supplemental O2 as needed. Levalbuterol nebs PRN. Incentive spirometry. Consider PFT's once current illness has resolved. EKG as described above- possible age-indeterminate inferior an anterior infarcts. (5) EKG abnormalities: EKG suggests possible age-indeterminate inferior and anterior infarcts. No clinical history of ishchemic heart disease, but multiple risk factors. Echo 55-60% (6) Smoking: Smokes about 1 pack/day. Nicotine patch. Smoking cessation counseling. (7) Dyslipidemia: Continue simvastatin. (8) Skin lesion: Multiple skin lesions. Lesion on right cheek may be BCC. Patient advised to review with PCP and consider Derm consult outpatient (9) DVT prophylaxis: Low risk of VTE per IMPROVE Risk Assessment Model. However, risk increased because of sepsis. Anticoagulation will not be utilized initially due to hematuria. SCD's. Ambulate. (10) Discharge planning issues: Anticipated discharge to home. [facility] Medicine follow-up with Dr. Ochoa. Patient will need Urology follow-up with Dr. Kunz. We will send home on Ceftin for 10 days once blood cultures been negative for 48 hours Voiding trial today. Subjective Patient feels much better today ROS-No Headache, No Visual Changes, positive fever, less chills, positive weakness, no longer with diaphoresis, no Neck Pain or Stiffness, No Chest Pain, No Palpitations, No SOB, No VASQUEZ, No Cough, No Sputum, No Wheezing, No Abdominal Pain, No Diarrhea, No Hematemesis, No Hemoptysis, No Unexpected Weight Loss, No Flank pain, No Melena, No Hematochezia, positive Frequency, positive urgency, positive burning, positive hematuria, No Rashes, No Diaphoresis. Appetite is Normal Physical Exam Gen-AAO x 3, NAD, febrile, pleasant, was much better today Head-NCAT, EOMI, PERRLA, Anicteric Sclera, No Posterior Pharyngeal Erythema Neck-Supple, No JVD, No Thyromegaly, No Masses, No LAD, No Bruits Lungs-Clear to Auscultation Bilaterally, No Rales, No Rhonchi, No Wheezing, No Crepitus Chest-No S4, +S1, +S2, No S3, No Murmurs, No Rubs, No Gallops, No Ectopy Abdomen-Soft, Bowel Sounds Present, Non Tender, Non Distended, No Hepatomegaly, No Splenomegaly, No Palpable Masses, No Rebound, No Rigidity, No Guarding Musculoskeletal-Full Range of Motion Bilaterally, No CVAT Extremities-No Cyanosis, No Clubbing, No Edema Nuero-Cranial Nerves II-XII grossly intact, Motor WNL, DTRs WNL, Strength WNL, No Focal Psych-Normal Mood Positive Kiser Physical Exam 2 Vital Signs (Past 24 Hours): Last Vital Signs Temp 36.7 C 11/03/18 07:57 Pulse 82 11/03/18 07:57 Resp 20 11/03/18 07:57 BP 114/74 11/03/18 07:57 Pulse Ox 92 11/03/18 07:57 Results & Data Laboratory Results Current Diagnoses Sepsis, unspecified organism (11/01/18) Hyperlipidemia, unspecified (11/01/18) Nicotine dependence, unspecified, uncomplicated (11/01/18) Disorder of the skin and subcutaneous tissue, unspecified (11/01/18) Urinary tract infection, site not specified (11/01/18) Hypoxemia (11/01/18) Retention of urine, unspecified (11/01/18) Abnormal electrocardiogram [ECG] [EKG] (11/01/18) Encounter for administrative examinations, unspecified (11/01/18) Allergies iodine Allergy (Mild, Unverified 11/01/18 14:10) UNKNOWN Height/Weight/Isolation Height 5 ft 11 in Weight 111.6 kg Chemistry 11/01/18 11/02/18 11/03/18 12:50 05:34 05:43 Sodium 136 135 L 135 L Potassium 3.6 3.5 3.1 L Chloride 104 106 102 Carbon Dioxide 21 26 25 Anion Gap 10.0 3.0 8.0 BUN 16 14 11 Creatinine 1.13 0.98 0.90 Glucose 125 H 119 H 114 H Urinalysis 11/01/18 12:49 Urine Color Dark Yellow Urine Appearance Turbid H Urine pH 5.5 Ur Specific Kimball 1.020 Urine Protein 2+ H Urine Glucose (UA) Negative Urine Ketones Trace H Urine Blood 3+ H Urine Nitrite Negative Urine Bilirubin Negative Microbiology 11/01/18 12:49 Urine,Straight Cath Urine Culture - Final Escherichia coli 11/01/18 12:55 Blood Blood Culture - Final Escherichia coli 11/01/18 12:50 Blood Blood Culture - Final Escherichia coli 11/02/18 11:07 Blood Blood Culture - Pending 11/02/18 11:29 Blood Blood Culture - Pending _ (1) Sepsis Sepsis type: sepsis due to unspecified organism Qualified Code(s): A41.9 - Sepsis, unspecified organism
[2018-11-03] MEDS: POTASSIUM CHLORIDE / WTR 10 MEQ/100 ML PLCT IV SCH ×4 (10:18→14:00)
[2018-11-03] MEDS: TAMSULOSIN HCL 0.4 MG CAP PO SCH (10:24)
[2018-11-03] MEDS: ASPIRIN 81 MG ECTAB PO SCH (16:23)
[2018-11-03] MEDS: SIMVASTATIN 40 MG TAB PO SCH (20:52)
[2018-11-04 06:37] LABS: Basophils # (auto) 0.02 K/uL (0-0.2); Basophils % (auto) 0.3 %; Eosinophils # (auto) 0.49 K/uL (0-0.5); Eosinophils % (auto) 7.9 %; Hematocrit (blood only) 40.5 % (42-52); Hemoglobin 13.7 g/dL (14.0-18.0); Immature Granulocytes # (auto) 0.02 K/uL (0.00-0.02); Immature Granulocytes % (auto) 0.3 %; Lymphocytes % (auto) 19.4 %; Mean Corpuscular Hgb Conc 33.8 g/dL (32-36); Mean Corpuscular Volume 92.9 fL (80-100); Mean Platelet Volume 10.3 fL (7.4-10.4); Monocytes # (auto) 0.91 K/uL (0.11-0.59); Monocytes % (auto) 14.7 %; Neutrophils # (auto) 3.53 K/uL (1.4-6.5); Neutrophils % (auto) 57.4 %; Platelet Count 165 K/uL (130-400); RDW Standard Deviation 44.4 fL (36.4-46.3); Red Blood Count 4.36 M/uL (4.7-6.1); White Blood Count 6.17 K/uL (4.8-10.8)
[2018-11-04 07:04] LABS: Albumin Level 2.9 gm/dl (3.4-5.0); BUN Creatinine Ratio 13.6 (10-20); Calcium 8.4 mg/dl (8.5-10.1); Creatinine Clr Calc Pharmacy 160.5 ml/min; Est GFR (African American) 107.5; Est GFR (Non-African American) 92.8; Potassium 3.5 mmol/L (3.5-5.1)
[2018-11-04 07:07] LABS: Albumin Globulin Ratio 0.8 (0.9-2); Bilirubin,Total 0.3 mg/dl (0.2-1); Globulin 3.8 gm/dl (2.5-4.0); Total Protein 6.7 gm/dl (6.4-8.2)
[2018-11-04] MEDS: cefTRIAXone SODIUM 1,000 MG in DEXTROSE 5% 50 ML IV SCH (08:15)
[2018-11-04] MEDS: TAMSULOSIN HCL 0.4 MG CAP PO SCH (08:16)
[2018-11-04] MEDS: NICOTINE 14 MG/24 HR PATCH TD SCH (08:16)
--- NOTE | 2018-11-04 10:36 | Discharge Summary ---
Date of Service November 04, 2018 Admission HPI Per Admitting Provider 68-year-old male followed by Dr. Ochoa. History of repaired AAA, dyslipidemia, and other problems as noted below. Rufus well until the morning before admission when he experienced difficulty voiding and urinary frequency. No dysuria. Possible gross hematuria. No flank pain. Temperature last night was as high as 101 and was associated with chills and sweats. Came to ED for evaluation due to his worsening symptoms. In the ED, he was noted to be febrile and tachycardic. Temp was as high as 38.6. Pulse rate was as high as 122. Initial oxygen saturation was 93% on room air. Repeat O2 sat after receiving IV fluids was 86%. Patient underwent evaluation for sepsis. Blood and urine cultures obtained. Received IV fluids and a dose of intravenous piperacillin/tazobactam. Kiser catheter placed for urinary retention. Seen by Urology (Dr. Kunz ) in the past for hydrocele. Patient denies any history of prostate, bladder, or kidney problems. Admission Exam Per Admitting Provider Constitutional: WD/WN, vitals as above no acute distress Eyes: PERRL, conjunctivae normal, anicteric sclerae ENMT: external ear and nose normal, oropharynx normal Ears: + hearing impairment Mouth: + dentures Neck: trachea midline, no thyromegaly Respiratory: no respiratory distress Auscultation: + wheezes (diffuse) Cardiovascular: Rate/Rhythm: regular rate Heart Sounds: no gallop, no murmur and no cardiac rub Vessels: + JVD Extremities: normal capillary refill and + edema (trace); no calf tenderness Gastrointestinal (Abdomen): normal bowel sounds, soft, nontender, no hepatosplenomegaly Musculoskeletal: Head/Neck/Chest: neck supple Extremities: strength 5/5 throughout; no cyanosis and no clubbing Skin: no rashes, warm and dry possible basal cell carcinoma right cheek nontender mass left hand overlying first metacarpal Neurologic: PERRL, EOMI no facial palsy no dysarthria or aphasia patellar DTR's 2/2 bilat Psychiatric: Orientation: alert and oriented x 3 Affect: euthymic affect Genitourinary: + prostate abnormality (moderately enlarged, boggy, tender) Kiser cath; urine dark bishop with streaks of blood Lymphatic: no cervical lymphadenopathy Principal Diagnosis E. coli UTI with gram-negative sepsis and bacteremia Suspected basal cell carcinoma of the face Urinary retentionresolved Tobacco use Hypoxemia Dyslipidemia Discharge Exam ROS-No Headache, No Visual Changes, No Fever, No Chills, No Neck Pain or Stiffness, No Chest Pain, No Palpitations, No SOB, No VASQUEZ, No Cough, No Sputum, No Wheezing, No Abdominal Pain, No Diarrhea, No Hematemesis, No Hemoptysis, No Unexpected Weight Loss, No Flank pain, No Melena, No Hematochezia, No Frequency , No Urgency, No Burning, No Hematuria, No Rashes, No Diaphoresis. Appetite is Normal Physical Exam Gen-AAO x 3, NAD, Afebrile Head-NCAT, EOMI, PERRLA, Anicteric Sclera, No Posterior Pharyngeal Erythema Neck-Supple, No JVD, No Thyromegaly, No Masses, No LAD, No Bruits Lungs-Clear to Auscultation Bilaterally, No Rales, No Rhonchi, No Wheezing, No Crepitus Chest-No S4, +S1, +S2, No S3, No Murmurs, No Rubs, No Gallops, No Ectopy Abdomen-Soft, Bowel Sounds Present, Non Tender, Non Distended, No Hepatomegaly, No Splenomegaly, No Palpable Masses, No Rebound, No Rigidity, No Guarding Musculoskeletal-Full Range of Motion Bilaterally, No CVAT Extremities-No Cyanosis, No Clubbing, No Edema Nuero-Cranial Nerves II-XII grossly intact, Motor WNL, DTRs WNL, Strength WNL, No Focal Psych-Normal Mood Discharge Data Allergies Allergy/AdvReac Type Severity Reaction Status Date / Time iodine Allergy Mild UNKNOWN Unverified 11/01/18 14:10 Consultations 11/01/18 14:30 ED Decision to Admit Stat Ordered Studies 11/01/18 12:41 CT abd pelvis IV con only Stat Hospital Course (1) Sepsis: Met criteria for gram-negative E. coli sepsis with bacteremia-present on admission (fever, tachycardia, leukocytosis). Hemodynamically stable. Serum lactate 0.7 Patient received IV fluids in the ED. Source of sepsis is urinary tract infection. Positive E. coli bacteremia and positive E. coli in the urine culture Repeat blood cultures are negative, DC on Omnicef for 7 more days Fluoroquinolones should be avoided if possible due to history of AAA. (2) Acute UTI (urinary tract infection): Positive urinalysisE. coli grown out on urine and blood cultures, pansensitive , antibiotics were descalated to Rocephin, and he will be discharged on 7 more [address] of O[address] demonstrated bladder wall thickening and infiltration of the perivesical fat consistent with cystitis; no renal calculi were seen. Symptoms and prostate exam consistent with prostatitis. We will do an outpatient referral to Dr. Kunz Will probably need prolonged course of antibiotic therapy due to suspected prostatitis. Fluoroquinolones should be avoided if possible due to history of AAA. (3) Urinary retention: Acute urinary retention, probably secondary to prostatitis. Voiding trial done and he is now urinating okay we will continue Flomax until he sees urology No hydronephrosis per CT. Kiser catheter inserted in the ED. now out Voiding trial done yesterday and Kiser is now out Follow-up with urology outpatient follow-up in clinic with Dr. Kunz. (4) Hypoxia: 90% on room air, smoker Resolved (5) EKG abnormalities: EKG suggests possible age-indeterminate inferior and anterior infarcts. No clinical history of ishchemic heart disease, but multiple risk factors. Echo 55-60% (6) Smoking: Smokes about 1 pack/day. Smoking cessation counseling. (7) Dyslipidemia: Continue simvastatin. (8) Skin lesion: Multiple skin lesions. Lesion on right cheek may be BCC. Patient advised to review with PCP and consider Derm consult outpatient (9) DVT prophylaxis: Low risk of VTE per IMPROVE Risk Assessment Model. However, risk increased because of sepsis. Anticoagulation will not be utilized initially due to hematuria. SCD's. Ambulate. (10) Discharge planning issues: Anticipated discharge to home today. [facility] Medicine follow-up with Dr. Ochoa. Patient will need Urology follow-up with Dr. Kunz. Patient will need follow-up with dermatology We will send home on Omnicef for 7 more days Total Time Total Time Spent Total Time Spent (In Minutes): 45 minutes Total Time Includes: Examination of the Patient, Discharge Planning, Medication Reconciliation and Communication With Other Providers Discharge Plan Discharge Items Patient Disposition: Home - Self-Care Reason For Visit: SEPSIS, HYPOXIA Discharge Diagnosis: E. coli UTI with gram-negative sepsis and bacteremia Suspected basal cell carcinoma of the face Urinary retentionresolved Tobacco use Hypoxemia Dyslipidemia Condition: Good Discharge Goals: Improve disease control and Increase independence Activity: Resume your previous activity Lifting: Gradually increase as tolerated Bathing: No limitations Sexual Activity: When tolerated Exercise/Sports: Gradually increase as tolerated Driving/Machine Use: No limitations Weightbearing: Left weightbearing and Right weightbearing Non-emergency contact: Primary Care Provider and Urologist Call non-emergency contact if: you have any medication questions, your symptoms worsen, your pain is worsening and your temperature is above 100.5 Follow-up/Referrals: Alejandro Ochoa [Primary Care Provider] - (Next 3-5 days) Edna Kunz MD [Physician] - (Call for first opening) Irina Stallings [Physician] - (First opening, for COPD and smoking) Diet: Heart Healthy Addtl Provider Instructions: Needs a referral for the skin lesion on his face, possible basal cell carcinoma Needs a referral to see Dr. Kunz from urology for prostatitis and urinary retention needs a referral to pulmonary for a pulmonary function test Prescriptions: New acetaminophen [Mapap (acetaminophen)] 325 mg Tablet 650 mg PO Q4H PRN (Reason: fever or pain) Qty: 100 RF: 0 tamsulosin 0.4 mg Capsule 0.4 mg PO QAM Qty: 30 RF: 0 cefdinir 300 mg capsule 300 mg PO BID 10 Days Qty: 20 RF: 0 albuterol sulfate [ProAir HFA] 90 mcg/actuation HFA aerosol inhaler 2 inha INH Q6H PRN (Reason: shortness of breath or wheezing) Qty: 8 RF: 0 Continue aspirin 81 mg Tablet,Delayed Release (Dr/Ec) 81 mg PO QDD RF: 0 simvastatin 40 mg tablet 40 mg PO HS RF: 0 garlic Tablet PO QDD RF: 0 multivit with qpg-GF-whetbydi [One Daily For Men] 0.4-600 mg-mcg Tablet 1 tab PO QDD RF: 0 calcium carbonate-vitamin D3 [Caltrate 600 + D] 600 mg (1,500 mg)-800 unit Tablet,Chewable 1 tab PO QDD RF: 0 Visit Report Forms: My [facility] [employer] Portal Stand-Alone Forms: [facility] Discharge Orders: Discharge Order (Routine); Ordered 11/04/18 Ordered By: Ozzy Page Admission Data Admit Date/Time: 11/01/18 15:20 Attending Provider: Ozzy Page Provider: Chino Veliz Primary Care Provider: Alejandro Ochoa Other Providers: Chino Veliz Service: Telemetry
== END 2018-11-04 12:01 | disposition home or self-care (01) | DRG 872 ==
LOC: ED 12:13 → 2S 15:20